=== PATIENT | female | born 1985 | race Asian ===

== ENCOUNTER 2019-02-19 05:30 | Emergency (ER) | payer SELFPAY ==
[~2019-02-19] VITALS: Ht 152.4 cm; Wt 50.2 kg
--- NOTE | 2019-02-19 05:59 | NUR ---
BLADDER SCAN REVEALS 567, BLADDER FIRM, [address] PLACED, URINE DRAINING CLEAR INTO BAG, PT REPORTS SOME RELIEF IMMEDIATELY.
[2019-02-19 06:18] LABS: MICROSCOPIC NOT IND
[2019-02-19 06:22] LABS: CULTURE INDICATED? NO
--- NOTE | 2019-02-19 06:40 | NUR ---
PT FEELING MUCH BETTER WITH BLADER DRAINED.
[2019-02-19 06:48] LABS: ALBUMIN 3.8 g/dL (3.4-5.0); ANION GAP 5 mmol/L (5-15); CALCIUM 8.7 mg/dL (8.5-10.1); CHLORIDE 108 mmol/L (98-107); CREATININE 0.57 mg/dL (0.55-1.02)
[2019-02-19 06:57] LABS: MEAN CORPUSCULAR HEMOGLOBIN 15.3 pg (27.0-34.8); MEAN CORPUSCULAR VOLUME 55.2 fL (80-100); MEAN PLATELET VOLUME 8.4 fL (7.4-10.4); PLATELET COUNT 356 x10^3/uL (130-400); RED CELL DISTRIBUTION WIDTH 25.3 % (9.6-15.2)
[2019-02-19 07:00] LABS: MEAN CORPUSCULAR HGB CONC 27.8 g/dL (32.4-35.8)
[2019-02-19 07:07] VITALS: BP 101/56
--- NOTE | 2019-02-19 07:07 | NUR ---
REPORT RECEIVED FROM ANGEL JACOBS. PLAN OF CARE DISCUSSED.
[2019-02-19 07:12] LABS: MD YES
--- NOTE | 2019-02-19 07:47 | NUR ---
FOLET LEG BAG PLACED, TAUGHT PATIENT ON CLEANING, HOW TO SWITCH BAG OUT, AND DRAINING BAG. PATIENT VERBALIZED UNDERSTANDING, DENIES ANY QUESTIONS. PATIENT VERBALIZED SHE WILL FOLLOW UP WITH UROLOGIST IN THE NEXT TWO DAYS.
[2019-02-19 07:54] LABS: BANDS%(MANUAL) 2 % (0-7); LYMPHS% (MANUAL) 2 % (22-44); SEGS% (MANUAL) 96 % (42-75)
[2019-02-19 07:55] LABS: <PLATELET ESTIMATE> ADEQUATE; <PLT MORPHOLOGY> NORMAL PLT MORPH; ANISOCYTOSIS 3+; HYPOCHROMIA 3+; MICROCYTOSIS 3+
[2019-02-19 07:56] LABS: OVALOCYTES 2+; SPHEROCYTES 1+
--- NOTE | 2019-02-19 07:56 | NUR ---
Patient/Caregiver given discharge instructions and they have confirmed that they understand the instructions. Patient ambulatory with steady gait.
== END 2019-02-19 07:52 | disposition home or self-care (01) ==
LOC: ED 06:18
DX: R33.9 Retention of urine, unspecified (principal); D50.8 Other iron deficiency anemias
CPT/HCPCS: 36415; 51702; 80048; 81003; 82040; 82607; 82728; 83540; 83550; 84703; 85025; 99284